=== PATIENT | male | born 1945 | race Caucasian/White ===

== ENCOUNTER → 2016-09-10 | Outpatient (CLI) | payer OTHER, BC ==
[2016-09-10 18:27] LABS: BASOPHILS # (AUTO) 0.06 10*3/UL; BASOPHILS % (AUTO) 0.7 % (0-1); EOSINOPHILS # (AUTO) 0.27 10*3/UL; EOSINOPHILS % (AUTO) 3.2 % (0-8); HEMATOCRIT 44.6 % (42.0-52.0); HEMOGLOBIN 15.3 g/dL (14.0-18.0); LYMPHOCYTES # (AUTO) 2.68 10*3/uL; MEAN CORPUSCULAR HEMOGLOBIN 31.1 PG (27-31); MEAN CORPUSCULAR HGB CONC 34.3 g/dL (33-37); MEAN CORPUSCULAR VOLUME 90.7 FL (80-90); MEAN PLATELET VOLUME 9.7 FL (7.4-12.2); MONOCYTES # (AUTO) 0.93 10*3/UL (0.3-0.8); MONOCYTES % (AUTO) 11.1 % (5-15); NEUTROPHILS # (AUTO) 4.41 10*3/UL; NEUTROPHILS % (AUTO) 52.8 % (50-80); RED BLOOD COUNT 4.92 10^6/uL (4.70-6.10)
[2016-09-10 18:30] LABS: PLATELET MORPHOLOGY COMMENT NORMAL MORPHOLOGY (NORM); RBC MORPHOLOGY COMMENT NORMAL MORPHOLOGY (NORM); WBC MORPHOLOGY COMMENT NORMAL MORPHOLOGY (NORM)
[2016-09-10 18:37] LABS: BLOOD UREA NITROGEN 21 mg/dL (7-22); CALCIUM 9.5 mg/dL (8.7-10.7); EST GLOMERULAR FILTRATION > 60 (>60 ml/min/1.73m(2)); SERUM ALBUMIN 4.3 g/dL (3.5-4.8)
[2016-09-10 18:38] LABS: CHOL/HDL RATIO 3.87 RATIO (0-4.0); LDL CHOLESTEROL,CALCULATED 105.4 mg/dL
[2016-09-10 18:39] LABS: BILIRUBIN,URINE NEGATIVE (NEG); COLOR,URINE YELLOW; GLUCOSE, URINE (UA) NEGATIVE (NEG); NITRATE,URINE NEGATIVE (NEG); OCCULT BLOOD,URINE NEGATIVE (NEG); PROTEIN,URINE TRACE mg/dl (NEG)
[2016-09-10 19:04] LABS: CLARITY,URINE CLEAR (CLEAR); URINE SAMPLE TYPE VOID; WBC,URINE 0-1
== END ==
LOC: MOB LAB 16:31
PROVIDERS: ATTEND Internal Medicine
DX: I10 Essential (primary) hypertension (principal); E66.9 Obesity, unspecified; Z68.33 Body mass index [BMI] 33.0-33.9, adult; R39.198 Other difficulties with micturition; G47.33 Obstructive sleep apnea (adult) (pediatric); K21.9 Gastro-esophageal reflux disease without esophagitis; Z12.5 Encounter for screening for malignant neoplasm of prostate
CPT/HCPCS: 36415; 80053; 80061; 81001; 84443; 85025; 99213; G0103; G0463

== ENCOUNTER 2017-04-12 23:11 | Observation (INO) ==
[2017-04-12] MEDS ORDERED: NORMAL SALINE 10 ML SYRINGE FLUSH IVP PRN (23:18)
[2017-04-12] MEDS ORDERED: ASPIRIN 81 MG (BABY) CHEWABLE TABLET PO ONE (23:18)
--- NOTE | 2017-04-12 23:20 | EKG ---
[address] [address] Measurements Intervals [place] Rate: 92 P: 17 DE: 210 QRS: 37 QRSD: 157 T: 29 QT: 398 QTc: 448 Interpretive Statements SINUS RHYTHM WITH FIRST DEGREE AV BLOCK INDETERMINATE AXIS RIGHT BUNDLE BRANCH BLOCK No previous ECG available for comparison Electronically Signed On 04-13-17 14:35:46 MST by Gregor Grace [email or web address]
--- NOTE | 2017-04-12 23:27 | PDOC ---
Chest Pain HPI - General Chief Complaint: Chest Pain Stated Complaint: CHEST PAIN Date Seen by Provider: 04/12/17 Time Seen by Provider: 23:10 Source: Patient Exam Limitations: POSITIVE: No limitations Treatment Prior to Arrival: REPORTS: None Nurse's Notes Reviewed & Considered: Yes - History of Present Illness Initial Comments: The patient is a 71-year-old male who presents to the emergency department with chest pain. He states that he had onset of pain in his left upper chest radiating to his left shoulder and left arm approximately 2 hours prior to presentation to the ER. He states that initially this pain was quite significant and he was rating it about a 7 out of 10. The pain has subsided somewhat and is now located primarily in his upper chest up into his neck. He rates this pain at only about a 2 out of 10 currently. The pain is somewhat worsened with taking a deep breath. The patient denies any associated diaphoresis, palpitation, nausea or increased shortness of breath. Patient does have a history of hypertension. He denies cardiac disease and had an exercise stress test about a year and a half ago that was unremarkable. He does have significant family history of coronary artery disease. He denies history of diabetes or hyperlipidemia. The patient does not use tobacco products. He has not had any new pain or swelling in his extremities. - Patient Home Medications Home Medications: Home Medications Multivit-Min/FA/Lycopen/Lutein [Sentry Senior Tablet] 1 ea PO DAILY tab Omeprazole Magnesium [Prilosec Otc] 1 tab PO PRN tab 03/06/15 Lisinopril 1 tab PO DAILY #30 tab 03/14/15 Amlodipine Besylate 1 tab PO DAILY tab 10/16/15 Acetaminophen [Tylenol] 325 mg PO PRN 04/12/17 Aspirin 81 mg PO DAILY 04/12/17 - Patient Allergies Allergies/Adverse Reactions: Allergies 3 Allergy/AdvReac Type Severity Reaction Status Date / Time ibuprofen Allergy Intermediate RASH Verified 04/13/17 09:04 Penicillins Allergy reddness, Verified 04/13/17 01:09 Past Medical History - hedurga FOWLER History: Denies History Cardiovascular History: Denies History Respiratory History: Denies History Gastrointestinal History: Denies History Genitourinary History: Denies History Endocrine History: Denies History Musculoskeletal History: Other (please comment) Additional Musculoskeletal History: Seperated shoulders. Neurological History: Denies History Blood Disorders: Denies History Psychiatric History: Denies History Male Reproductive History: Denies History Cancer History: Denies History In Past Year Been Physically Harmed or Verbally Threatened: No History of MDRO: No Tobacco Use: Never Smoker In the Past 12 Months, Have Used or Abuse Any Substance: None Previous Surgical History: No Significant Family History: Cancer Past Medical History Reviewed: Reviewed - No Changes ROS - Limitations ROS Limitations: No Limitations Constitution: DENIES: Chills, Fever Cardiovascular: REPORTS: Chest Pain. DENIES: Heart Racing, Heart Palpitations Respiratory: REPORTS: Hurts To Breathe. DENIES: Cough Non Productive, Cough Productive, Shortness Of Breath Neurological: DENIES: Headache, Numbness, Weakness Gastrointestinal: DENIES: Abdominal Pain, Nausea, Vomitting, Diarrhea Musculoskeletal: REPORTS: Denies MS Symptoms Eyes: REPORTS: Denies Symptoms ENT: REPORTS: Denies Symptoms Skin: DENIES: Rash Chest Pain PE - General Appearance General Appearance: REPORTS: Alert, Cooperative, No Acute Distress - HEENT HEENT: POSITIVE: Head Inspection Nml, Eyes Inspection Nml, Ears Inspection Nml, Nose Inspection Nml, Pharynx Inspect. Nml - Neck Neck: REPORTS: Normal Inspection. 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 Lab Results Reviewed by Me: Yes CBC and BMP: 04/12/17 23:18 04/12/17 23:18 EKG Interpretation:: POSITIVE: Normal Sinus Rhythm, Normal Rate, Normal ST/T, Other (The patient has a right bundle branch block with no obvious ST segment changes. No previous EKGs are available for comparison except for the strips from the stress test last year and he did have the right bundle branch block then.) - Patient's Progress MDM / ED Course: The patient was given aspirin per chest pain protocol shortly after arrival. His EKG showed a right bundle branch block with no obvious ST segment changes with no old EKGs available for comparison. His pain was quite minimal on arrival and subsequently resolved completely without any further treatment. His initial blood work is all unremarkable except for an elevated white blood cell count. His troponin d-dimer are normal. He denies any recent infectious symptoms. Decision was made to admit the patient for further cardiac monitoring and evaluation. The patient was in agreement with this plan. Dr. Fletcher has agreed to admit the patient. - Consult Counseled: POSITIVE: Patient, Family, RE: Lab Results, RE: Radiology Results, RE : DX Patient Care Time - Estimated PCT Patient Care Time (In Minutes): 30 Vital Signs - Recent Vital Signs Vital Signs: Vital Signs (Last 8 hours) Temp Pulse Pulse Resp BP Pulse Ox 04/13/17 08:28 97.1 F 83 20 116/66 96 04/13/17 06:50 82 04/13/17 04:52 96.9 F 77 20 129/70 94 04/13/17 03:00 104 H - VS Reviewed Vital Signs Reviewed: Yes Discharge Clinical Impression: Chest pain Discharge Disposition: Admit to Observation Condition: Fair
[2017-04-12 23:32] LABS: Hematocrit [HCT] 48.8 % (42.0-52.0); Hemoglobin [HGB] 16.6 g/dL (14.0-18.0); RED BLOOD COUNT 5.07 10^6/uL (4.70-6.10)
[2017-04-12 23:33] LABS: BAND NEUTROPHILS % 3 % (0-10); BASOPHILS % (MANUAL) 0 % (0-1); BLOOD UREA NITROGEN 22 mg/dL (7-22); EOSINOPHILS % (MANUAL) 0 % (0-8); MAGNESIUM 1.5 mg/dL (1.6-2.4); MEAN CORPUSCULAR HEMOGLOBIN 32.8 PG (27-31); MEAN CORPUSCULAR VOLUME 96 FL (80-90); MEAN PLATELET VOLUME 6.8 FL (7.4-12.2); MONOCYTES % (MANUAL) 6 % (0-12); NEUTROPHILS % (MANUAL) 73 % (50-80); PLATELET MORPHOLOGY COMMENT NORMAL MORPHOLOGY (NORM); RBC MORPHOLOGY COMMENT NORMAL MORPHOLOGY (NORM); SERUM ALBUMIN 4.5 g/dL (3.5-4.8); WBC MORPHOLOGY COMMENT SEE COMMENTS (NORM)
[2017-04-13] MEDS ORDERED: NITROGLYCERIN 0.4 MG SL TAB (BOTTLE OF 3) SL PRN (00:22)
[2017-04-13] MEDS ORDERED: NORMAL SALINE 10 ML SYRINGE FLUSH IVP PRN (00:22)
[2017-04-13] MEDS ORDERED: ONDANSETRON 4 MG/2 ML VIAL IVP PRN (00:22)
[2017-04-13] MEDS ORDERED: LIDOCAINE W/ SODIUM BICARB 0.5 ML SYR SUBD PRN (00:22)
[2017-04-13] MEDS ORDERED: CALCIUM CARBONATE 500 MG (TUMS) CHEWABLE TABLET PO PRN (00:22)
[2017-04-13] MEDS ORDERED: ACETAMINOPHEN 325 MG TABLET PO PRN (00:30)
[2017-04-13 05:54] LABS: CHOL/HDL RATIO 3.7 RATIO (0-4.0)
--- NOTE | 2017-04-13 07:36 | EKG ---
[address] [address] Measurements Intervals [place] Rate: 80 P: 53 WV: 190 QRS: 40 QRSD: 158 T: 52 QT: 410 QTc: 446 Interpretive Statements SINUS RHYTHM INDETERMINATE AXIS RIGHT BUNDLE BRANCH BLOCK ST ELEVATION, CONSIDER INFERIOR INJUR Compared to ECG 04/12/2017 23:16:40 ST (T wave) deviation now present First degree AV block no longer present Electronically Signed On 04-13-17 14:33:14 [facility] by Gregor Grace [id number]
[2017-04-13] MEDS ORDERED: Magnesium Sulfate 2gm (Premix) 2 GM/50 ML BAG IV ONE (08:40)
[2017-04-13] MEDS ORDERED: OMEPRAZOLE MAGNESIUM PO SCH (08:45)
--- NOTE | 2017-04-13 08:46 | EKG ---
[address] [address] Measurements Intervals [place] Rate: 81 P: 42 [place]: 188 QRS: 45 QRSD: 153 T: 59 QT: 411 QTc: 448 Interpretive Statements SINUS RHYTHM RIGHT BUNDLE BRANCH BLOCK Compared to ECG 04/13/2017 07:35:26 ST (T wave) deviation still presen Electronically Signed On 04-13-17 14:29:19 MST by Gregor Grace [id number]
--- NOTE | 2017-04-13 09:07 | DI ---
INDICATION: Chest pain COMPARISON: None. FINDINGS: Single frontal view of the chest is provided. There is mild cardiomegaly with normal pulmonary vascularity. Silhouetting of the left hemidiaphragm may be related to prominent epicardial fat pad or small pleural effusion. There is no airspace consolidation or pneumothorax. There are no acute osseous findings. IMPRESSION: 1. Silhouetting of the left hemidiaphragm, prominent epicardial fat pad versus small pleural effusion. 2. Mild cardiomegaly.
[2017-04-13] MEDS: ASPIRIN 81 MG (BABY) CHEWABLE TABLET PO SCH (09:15)
[2017-04-13 09:18] LABS: Hematocrit [HCT] 45.7 % (42.0-52.0); Hemoglobin [HGB] 15.7 g/dL (14.0-18.0); MEAN CORPUSCULAR HGB CONC 34.3 g/dL (33-37); MEAN CORPUSCULAR VOLUME 96 FL (80-90); NEUTROPHILS % (AUTO) 77.3 % (50-80); RED BLOOD COUNT 4.75 10^6/uL (4.70-6.10)
[2017-04-13 09:19] LABS: BASOPHILS % (AUTO) 0.8 % (0-1); EOSINOPHILS % (AUTO) 1.3 % (0-8); MONOCYTES % (AUTO) 10.9 % (5-15)
[2017-04-13 09:20] LABS: BASOPHILS # (AUTO) 0.12 10*3/UL; EOSINOPHILS # (AUTO) 0.19 10*3/UL; LYMPHOCYTES # (AUTO) 1.53 10*3/uL; MONOCYTES # (AUTO) 1.56 10*3/UL (0.3-0.8); NEUTROPHILS # (AUTO) 11.56 10*3/UL; PLATELET MORPHOLOGY COMMENT NORMAL MORPHOLOGY (NORM); RBC MORPHOLOGY COMMENT NORMAL MORPHOLOGY (NORM); WBC MORPHOLOGY COMMENT NORMAL MORPHOLOGY (NORM)
--- NOTE | 2017-04-13 09:22 | PDOC ---
HPI - History of Present Illness Date and Time of Service: 04/13/2017, 920 Chief Complaint: Chest and shoulder pain History of Present Illness: This very pleasant 71-year-old male who has underlying hypertension who drove in from [place], [place] last night when he abruptly developed chest pain. He described it as left shoulder pain with radiation into his left arm and manubrial pain that has been fairly constant and persistent and has not responded to nitroglycerin. There was no activity component. The patient has a very remote history of smoking, quit over 50 years ago, does not have early cardiac disease in the family, no diabetes, no cholesterol problems. He states that he's also feeling some discomfort in his throat and apparently has had some ill contacts lately. In the emergency room, he was found to have a white blood cell count of 18,000 but he had no evidence of pneumonia on his chest x- ray. His EKG shows a right bundle branch block pattern. His initial labs were negative for acute myocardial infarction. The patient has not been short of breath, has not had cough, fever, or chills. He states that his pain seems to be a little worse with a deep breath. There is no positional component to the pain. He is a very difficult time describing the quality of the pain. He has a negative exercise treadmill stress test a couple of years ago. Past Medical History Medical History: 1. Hypertension. 2. GERD. 3. Obstructive sleep apnea on CPAP therapy Surgical History: Partial left thumb amputation. Pertinent Family History: Father had a heart attack and a stroke. He was in his 80s, mother had some heart issues she was in her 60s Past Social History: Smoked over 50 years ago. Does not drink alcohol. 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 Quit chewing tobacco 4 years ago. Tobacco Use: Former Smoker Do you dip or chew tobacco: No In the Past 12 Months, Have Used or Abuse Any of the Following Substance: None Alcohol Use: None Medication / Allergies Home Medications: Home Medications Medication Instructions Recorded Confirmed Type Multivit-Min/FA/Lycopen/Lutein 1 ea PO DAILY tab 03/06/15 04/12/17 History [Sentry Senior Tablet] Omeprazole Magnesium [Prilosec Otc] 1 tab PO PRN tab 03/06/15 04/12/17 History Lisinopril 1 tab PO DAILY #30 tab 03/14/15 04/12/17 History Amlodipine Besylate 1 tab PO DAILY tab 10/16/15 04/12/17 History Acetaminophen [Tylenol] 325 mg PO PRN 04/12/17 04/12/17 History Aspirin 81 mg PO DAILY 04/12/17 04/12/17 History Allergies/Adverse Reactions: Allergies 3 Allergy/AdvReac Type Severity Reaction Status Date / Time ibuprofen Allergy Intermediate RASH Verified 04/13/17 09:04 Penicillins Allergy reddness, Verified 04/13/17 01:09 Review of Systems - Review of Systems All Systems: Reviewed & No Additional Complaints Except as Stated (I did a 12 point review systems and was negative other than that discussed in history present illness and that noted below.) - Respiratory Respiratory: REPORTS: Negative System Review - Cardiovascular Cardiovascular: REPORTS: See HPI - Genitourinary Genitourinary: REPORTS: Decreased Stream - Musculoskeletal Musculoskeletal: REPORTS: Joint Pain - Shoulders - Neurological Neurologic: REPORTS: Negative System Review Exam - Vitals Vital Signs: Vital Signs Temperature 97.1 F Temperature Source Oral Pulse Rate [Pulse Oximeter] 83 Pulse Rate 82 Respiratory Rate 20 Blood Pressure [Right Arm] 116/66 Pulse Ox 96 Oxygen Flow Rate 2 Oxygen Delivery Method Nasal Cannula Height 6 ft 3 in Weight 245 lb 9.6 oz - General General Appearance: No Acute Distress, Cooperative - Head Head Exam: Normal Inspection, Normocephalic, Atraumatic - Eye Eye Exam: POSITIVE: No Scleral Icterus - ENT ENT Exam: POSITIVE: Mucous Membranes Moist Additonal ENT Exam Details: On examination of oral cavity, it appears normal. No anterior cervical lymphadenopathy. - Neck Neck Exam: Normal Inspection, No Tenderness, No Lymphadenopathy, No Thyromegaly - Respiratory Respiratory Exam: POSITIVE: Clear to Auscultation - Bilaterally, Breathing Non Labored, Normal to Percussion and Palpation - Cardiovascular Cardiovascular Exam: POSITIVE: RRR, No Murmur, No Clicks, No Gallops, No Rubs, No JVD - GI/Abdominal GI/Abdominal Exam: POSITIVE: Normal Bowel Sounds, Non Tender, Non Distended, Soft - Rectal Rectal Exam: POSITIVE: Deferred - External Exam: POSITIVE: Deferred Exam: POSITIVE: Deferred - Extremities Extremities Exam: POSITIVE: No Clubbing Present, No Edema Present, No Cyanosis Present - Back Back Exam: POSITIVE: Normal Inspection, No CVA Tenderness - Neurological Neurological Exam: POSITIVE: Alert, Oriented x 3, No Facial Droop, Speech Intact / Clear, Moves All Extremities Equally - Psychiatric Psychiatric Exam: POSITIVE: Normal Affect, Normal Mood - Central Line Examination Central Line Present on Admission: No Results - Labs CBC and BMP: 04/12/17 23:18 04/12/17 23:18 Additional Lab Results: Laboratory Results 04/12/17 04/12/17 04/12/17 Range/Units 23:18 23:18 23:18 WBC 18.6 H (4.8-10.8) 10^3/uL RBC 5.07 (4.70-6.10) 10^6/uL Hgb 16.6 (14.0-18.0) g/dL Hct 48.8 (42.0-52.0) % MCV 96 H (80-90) FL MCH 32.8 H (27-31) PG MCHC 34.0 (33-37) g/dL RDW Coeff of Bakari 11.9 (11.5-14.5) % Plt Count 284 (140-350) 10*3/uL MPV 6.8 L (7.4-12.2) FL Neut % (Auto) (50-80) % Lymph % (Auto) (10-50) % Garrard % (Auto) (5-15) % Eos % (Auto) (0-8) % Baso % (Auto) (0-1) % Neut # (Auto) 10*3/UL Lymph # (Auto) 10*3/uL [place]ard # (Auto) (0.3-0.8) 10*3/UL Eos # (Auto) 10*3/UL Baso # (Auto) 10*3/UL Neutrophils % (Manual) 73 (50-80) % Band Neutrophils % 3 (0-10) % Lymphocytes % (Manual) 18 (10-50) % Monocytes % (Manual) 6 (0-12) % Eosinophils % (Manual) 0 (0-8) % Basophils % (Manual) 0 (0-1) % Metamyelocytes % Not Reportable Myelocytes % Not Reportable Promyelocytes % Not Reportable Blast Cells Not Reportable WBC Morphology Comment See comments (NORM) Plt Morphology Comment Normal morphology (NORM) RBC Morph Comment Normal morphology (NORM) D-Dimer 0.34 (0.00-0.59) mg/L Sodium 143 (135-145) meq/L Potassium 4.0 (3.8-5.2) meq/L Chloride 103 (98-112) meq/L Carbon Dioxide 25 (23-33) meq/L Anion Gap 15 (5-20) BUN 22 (7-22) mg/dL Creatinine 1.0 (0.70-1.50) mg/dL Estimated GFR > 60 (>60 ml/min/1.73m(2)) BUN/Creatinine Ratio 22.00 H (6-20) Glucose 96 (78-110) mg/dL Calculated Osmolality 298.0 H (267-292) mOsm/kg Calcium 9.2 (8.7-10.7) mg/dL Magnesium 1.5 L (1.6-2.4) mg/dL Total Bilirubin 0.7 (0.3-1.2) mg/dL AST 32 (21-57) IU/L ALT 38 (21-72) IU/L Alkaline Phosphatase 92 (38-126) IU/L Lactate Dehydrogenase (313-618) IU/L CK-MB (CK-2) (0.00-5.00) NG/ML Troponin I (< 0.040) ng/mL Total Protein 8.2 H (6.1-8.0) g/dL Albumin 4.5 (3.5-4.8) g/dL Globulin 3.7 (2.50-4.10) g/dL Albumin/Globulin Ratio 1.20 L (1.3-2.0) mg/g Triglycerides (44-200) mg/dL Cholesterol (120-200) mg/dL LDL Cholesterol, Calc mg/dL VLDL Cholesterol (0-40) mg/dL HDL Cholesterol (40-150) mg/dL Cholesterol/HDL Ratio (0-4.0) RATIO TSH (0.2700-4.2000) uIU/mL Free T4 (0.93-1.71) ng/dL 04/12/17 04/13/17 04/13/17 Range/Units 23:18 05:40 05:40 WBC (4.8-10.8) 10^3/uL RBC (4.70-6.10) 10^6/uL Hgb (14.0-18.0) g/dL Hct (42.0-52.0) % MCV (80-90) FL MCH (27-31) PG MCHC (33-37) g/dL RDW Coeff of Bakari (11.5-14.5) % Plt Count (140-350) 10*3/uL MPV (7.4-12.2) FL Neut % (Auto) (50-80) % Lymph % (Auto) (10-50) % Garrard % (Auto) (5-15) % Eos % (Auto) (0-8) % Baso % (Auto) (0-1) % Neut # (Auto) 10*3/UL Lymph # (Auto) 10*3/uL [place] # (Auto) (0.3-0.8) 10*3/UL Eos # (Auto) 10*3/UL Baso # (Auto) 10*3/UL Neutrophils % (Manual) (50-80) % Band Neutrophils % (0-10) % Lymphocytes % (Manual) (10-50) % Monocytes % (Manual) (0-12) % Eosinophils % (Manual) (0-8) % Basophils % (Manual) (0-1) % Metamyelocytes % Myelocytes % Promyelocytes % Blast Cells WBC Morphology Comment (NORM) Plt Morphology Comment (NORM) RBC Morph Comment (NORM) D-Dimer (0.00-0.59) mg/L Sodium (135-145) meq/L Potassium (3.8-5.2) meq/L Chloride (98-112) meq/L Carbon Dioxide (23-33) meq/L Anion Gap (5-20) BUN (7-22) mg/dL Creatinine (0.70-1.50) mg/dL Estimated GFR (>60 ml/min/1.73m(2)) BUN/Creatinine Ratio (6-20) Glucose (78-110) mg/dL Calculated Osmolality (267-292) mOsm/kg Calcium (8.7-10.7) mg/dL Magnesium (1.6-2.4) mg/dL Total Bilirubin (0.3-1.2) mg/dL AST (21-57) IU/L ALT (21-72) IU/L Alkaline Phosphatase (38-126) IU/L Lactate Dehydrogenase (313-618) IU/L CK-MB (CK-2) 1.22 (0.00-5.00) NG/ML Troponin I < 0.012 < 0.012 (< 0.040) ng/mL Total Protein (6.1-8.0) g/dL Albumin (3.5-4.8) g/dL Globulin (2.50-4.10) g/dL Albumin/Globulin Ratio (1.3-2.0) mg/g Triglycerides 74 (44-200) mg/dL Cholesterol 174 (120-200) mg/dL LDL Cholesterol, Calc 112.200 mg/dL VLDL Cholesterol 14 (0-40) mg/dL HDL Cholesterol 47 (40-150) mg/dL Cholesterol/HDL Ratio 3.70 (0-4.0) RATIO TSH (0.2700-4.2000) uIU/mL Free T4 (0.93-1.71) ng/dL 04/13/17 04/13/17 04/13/17 Range/Units 05:40 05:40 05:40 WBC 15.0 H (4.8-10.8) 10^3/uL RBC 4.75 (4.70-6.10) 10^6/uL Hgb 15.7 (14.0-18.0) g/dL Hct 45.7 (42.0-52.0) % MCV 96 H (80-90) FL MCH 33.0 H (27-31) PG MCHC 34.3 (33-37) g/dL RDW Coeff of Bakari 11.8 (11.5-14.5) % Plt Count 250 (140-350) 10*3/uL MPV 7.0 L (7.4-12.2) FL Neut % (Auto) 77.3 (50-80) % Lymph % (Auto) 10.2 (10-50) % Garrard % (Auto) 10.9 (5-15) % Eos % (Auto) 1.3 (0-8) % Baso % (Auto) 0.8 (0-1) % Neut # (Auto) 11.56 10*3/UL Lymph # (Auto) 1.53 10*3/uL G[place]ard # (Auto) 1.56 H (0.3-0.8) 10*3/UL Eos # (Auto) 0.19 10*3/UL Baso # (Auto) 0.12 10*3/UL Neutrophils % (Manual) (50-80) % Band Neutrophils % (0-10) % Lymphocytes % (Manual) (10-50) % Monocytes % (Manual) (0-12) % Eosinophils % (Manual) (0-8) % Basophils % (Manual) (0-1) % Metamyelocytes % Myelocytes % Promyelocytes % Blast Cells WBC Morphology Comment Normal morphology (NORM) Plt Morphology Comment Normal morphology (NORM) RBC Morph Comment Normal morphology (NORM) D-Dimer (0.00-0.59) mg/L Sodium (135-145) meq/L Potassium (3.8-5.2) meq/L Chloride (98-112) meq/L Carbon Dioxide (23-33) meq/L Anion Gap (5-20) BUN (7-22) mg/dL Creatinine (0.70-1.50) mg/dL Estimated GFR (>60 ml/min/1.73m(2)) BUN/Creatinine Ratio (6-20) Glucose (78-110) mg/dL Calculated Osmolality (267-292) mOsm/kg Calcium (8.7-10.7) mg/dL Magnesium (1.6-2.4) mg/dL Total Bilirubin (0.3-1.2) mg/dL AST (21-57) IU/L ALT (21-72) IU/L Alkaline Phosphatase (38-126) IU/L Lactate Dehydrogenase 827 H (313-618) IU/L CK-MB (CK-2) (0.00-5.00) NG/ML Troponin I (< 0.040) ng/mL Total Protein (6.1-8.0) g/dL Albumin (3.5-4.8) g/dL Globulin (2.50-4.10) g/dL Albumin/Globulin Ratio (1.3-2.0) mg/g Triglycerides (44-200) mg/dL Cholesterol (120-200) mg/dL LDL Cholesterol, Calc mg/dL VLDL Cholesterol (0-40) mg/dL HDL Cholesterol (40-150) mg/dL Cholesterol/HDL Ratio (0-4.0) RATIO TSH 1.60 (0.2700-4.2000) uIU/mL Free T4 0.96 (0.93-1.71) ng/dL 11/19/17 Range/Units 05:40 WBC (4.8-10.8) 10^3/uL RBC (4.70-6.10) 10^6/uL Hgb (14.0-18.0) g/dL Hct (42.0-52.0) % MCV (80-90) FL MCH (27-31) PG MCHC (33-37) g/dL RDW Coeff of Bakari (11.5-14.5) % Plt Count (140-350) 10*3/uL MPV (7.4-12.2) FL Neut % (Auto) (50-80) % Lymph % (Auto) (10-50) % Garrard % (Auto) (5-15) % Eos % (Auto) (0-8) % Baso % (Auto) (0-1) % Neut # (Auto) 10*3/UL Lymph # (Auto) 10*3/uL Garrard # (Auto) (0.3-0.8) 10*3/UL Eos # (Auto) 10*3/UL Baso # (Auto) 10*3/UL Neutrophils % (Manual) (50-80) % Band Neutrophils % (0-10) % Lymphocytes % (Manual) (10-50) % Monocytes % (Manual) (0-12) % Eosinophils % (Manual) (0-8) % Basophils % (Manual) (0-1) % Metamyelocytes % Myelocytes % Promyelocytes % Blast Cells WBC Morphology Comment (NORM) Plt Morphology Comment (NORM) RBC Morph Comment (NORM) D-Dimer (0.00-0.59) mg/L Sodium (135-145) meq/L Potassium (3.8-5.2) meq/L Chloride (98-112) meq/L Carbon Dioxide (23-33) meq/L Anion Gap (5-20) BUN (7-22) mg/dL Creatinine (0.70-1.50) mg/dL Estimated GFR (>60 ml/min/1.73m(2)) BUN/Creatinine Ratio (6-20) Glucose (78-110) mg/dL Calculated Osmolality (267-292) mOsm/kg Calcium (8.7-10.7) mg/dL Magnesium (1.6-2.4) mg/dL Total Bilirubin (0.3-1.2) mg/dL AST (21-57) IU/L ALT (21-72) IU/L Alkaline Phosphatase (38-126) IU/L Lactate Dehydrogenase (313-618) IU/L CK-MB (CK-2) 1.09 (0.00-5.00) NG/ML Troponin I (< 0.040) ng/mL Total Protein (6.1-8.0) g/dL Albumin (3.5-4.8) g/dL Globulin (2.50-4.10) g/dL Albumin/Globulin Ratio (1.3-2.0) mg/g Triglycerides (44-200) mg/dL Cholesterol (120-200) mg/dL LDL Cholesterol, Calc mg/dL VLDL Cholesterol (0-40) mg/dL HDL Cholesterol (40-150) mg/dL Cholesterol/HDL Ratio (0-4.0) RATIO TSH (0.2700-4.2000) uIU/mL Free T4 (0.93-1.71) ng/dL - EKG Data -: EKG Interpreted by Me Rate: Normal EKG Shows Normal: Sinus Rhythm - EKG Data When Compared to Previous EKG(s) There Are: No Significant Change EKG Interpretation: Other (The patient has 3 EKGs, I think they all look fairly similar, with a right bundle branch block with specific ST changes that I don't see significant changes from an EKG to the other.) - Imaging Status: Image Reviewed by Me (Chest x-ray is negative for pneumonia on my view.) Assessment and Plan - Patient Problems (1) Chest pain Current Visit: Yes Status: Acute Comment: The only consistent finding in history was that there is somewhat of a pleuritic component to this pain. It was not reproduced with palpation. It is isolated on the manubrium, seems to radiate to the shoulder and to the throat area. Code(s): R07.9 - Chest pain, unspecified Qualifiers: Chest pain type: chest pain on breathing Qualified Code(s): R07.1 - Chest pain on breathing; R07.81 - Pleurodynia (2) Hypertension Current Visit: Yes Status: Acute Code(s): I10 - Essential (primary) hypertension Qualifiers: Hypertension type: essential hypertension Qualified Code(s): I10 - Essential (primary) hypertension (3) GERD (gastroesophageal reflux disease) Current Visit: Yes Status: Acute Code(s): K21.9 - Gastro-esophageal reflux disease without esophagitis Qualifiers: Esophagitis presence: esophagitis presence not specified Qualified Code(s) : K21.9 - Gastro-esophageal reflux disease without esophagitis (4) Obstructive sleep apnea Current Visit: Yes Status: Acute Code(s): G47.33 - Obstructive sleep apnea ( adult) (pediatric) - Assessment / Plan Additional Assessment/Plan Details: Plan: 1. Do serial enzymes and EKG if necessary 2. Aspirin 3. We'll have the patient do a stress test chemical 4. Proton pump inhibitor as the patient is normally on this. 5. Nitroglycerin when necessary for chest pain 6. Morphine if necessary via IV 7. Oxygen if necessary 8. If testing indicates further need for evaluation, discussion with cardiology. If testing is negative for myocardial infarction and no further indication for coronary artery disease, consider outpatient workup for GI source , pulmonary source, or other 9. Given the right bundle branch block, I think that we should go ahead and proceed with a chemical stress test. He has a history of a negative exercise stress test done here 2 years ago. 10. As we're fairly early in the process here of this chest pain presentation, I will go ahead and check CK-MB and also LDH and see if these are elevated, but thus far troponins do not seem to indicate that there's been an acute myocardial event. Plan above discussed with patient and he agreed.
[2017-04-13] MEDS: LISINOPRIL 20 MG TABLET PO SCH (09:24)
[2017-04-13] MEDS: Multivitamin Tab 1 TAB PO SCH (10:03)
[2017-04-14] MEDS ORDERED: OMEPRAZOLE MAGNESIUM PO SCH (09:00)
[2017-04-14] MEDS ORDERED: ASPIRIN 81 MG (BABY) CHEWABLE TABLET PO SCH (09:00)
[2017-04-14] MEDS: LISINOPRIL 20 MG TABLET PO SCH (10:00)
[2017-04-14] MEDS: Multivitamin Tab 1 TAB PO SCH (10:00)
[2017-04-14] MEDS: ASPIRIN 81 MG (BABY) CHEWABLE TABLET PO SCH (10:00)
--- NOTE | 2017-04-14 10:16 | STRESSTEST ---
[facility] - [place], [place] Interpretive Statements This is a 71 YO with upper sternal chest pain, hx of HTN, who ruled out for DE. Has a right BBB. Oralia scan stress test ordered and done with resting images yesterday and stress images today. Resting EKG was NSR with right BBB with non specific ST changes. No symptoms of chest pain on study. Plan: compile images for radiologist and await radiology interpretation. [email or web address]
[2017-04-14] MEDS ORDERED: OMEPRAZOLE 20 MG CAPSULE PO SCH (11:30)
[2017-04-14 16:11] VITALS: BP 146/72; RESP 18; TEMP 97.4; O2SAT 97
--- NOTE | 2017-04-14 17:22 | DI ---
2 DAY LEXISCAN STRESS & REST MYOCARDIAL PERFUSION SCANS, 04/13/2017 7:00 AM : Clinical History: Chest pain. Previous Exam: None at this facility. Monitoring Physician: Dr. Rafael Brewster. Dose: Stress dose: 35 mCi on 04/14/2017. Rest dose: 37 mCi on 04/13/2017. Quantitative Analysis: Gorb program with low dose limited CT chest scan attenuation correctio n. Exam Quality: Excellent. Rejected Beats: Stress = 0%; Rest = 0%. HR: Stress = 73-80 b/m; Rest = 83-8 5 b/m. Left ventricular chamber sizes are normal at stress and rest. Transient ischemic dilatation ratio is 1.13 (normal David TID <= 1.22; normal Lexiscan TID <= 1.33). Stress LVEF: 72%; rest LVEF: 81%. Stres s and rest non-attenuated and attenuated corrected scans show normal myocardial perfusion, wall motio n, and thickening. Limited CT scans of the heart show no coronary artery calcifications. There are no lung nodules or enlarged nodes. Scans through the right middle lobe show a 6 mm noncalcified nodule. See below for followup. Readin. Normal stress and rest left ventricular chamber size. Transient ischemic dilatation ratio is norm al at 1.13. 2. Normal stress and rest LVEF values of 72% and 81%, respectively. 3. Normal stress and rest myocardial perfusion, wall motion, and thickening. 4. There is a 6 mm noncalcified nodule in the right middle lobe. If this patient is considered to be either low risk or high-risk, then a followup CT chest scan is recommended at 6 months. 5. The low dose stress and rest CT scans of the chest through the region of the heart show no coron sandra calcifications. There is no mediastinal or hilar adenopathy.
--- NOTE | 2017-04-14 17:37 | DCSUMMARY ---
Hospitalization Summary Admit Date: 04/13/17 Discharge Date: 04/14/17 Primary Diagnosis:: atypical chest pain, probably musculoskeletal Hospital Course: This very pleasant 71-year-old male that presented with left shoulder pain radiating down his arm and into the manubrium. He was admitted for evaluation, ruled out for myocardial infarction but was found to have a right bundle branch block. He had nonspecific EKG changes associated with a right bundle branch block. Enzymes were all negative. We did a Lexiscan stress test and it was negative for coronary artery disease. Incidentally a lung nodule was found. It was 6 mm and the patient is fairly low risk as he has not smoked in over 50 years. We will repeat a CT scan in 2 months. The patient's pain resolved and never did come back during the hospital stay. Today, no completes of chest pain, shortness breath, nausea or vomiting. Patient would like to go home. Assessment and Plan: 1. As per discharge assessments noted 2. Disposition: Patient is discharged home. 3. Condition on discharge, stable and improved. 4. Diet: regular diet 5. Activities: resume normal activities 6. Follow-Up: 1. See Dr. Underwood or Dr. Alatorre in the next week if possible, definitely after CT scan in 2 months 2. 7. Medications at the Time of Discharge: Home Medications Medication Instructions Recorded Confirmed Type Multivit-Min/FA/Lycopen/Lutein 1 ea PO DAILY tab 03/06/15 04/12/17 History [Sentry Senior Tablet] Omeprazole Magnesium [Prilosec Otc] 1 tab PO PRN tab 03/06/15 04/12/17 History Lisinopril 1 tab PO DAILY #30 tab 03/14/15 04/12/17 History Amlodipine Besylate 1 tab PO DAILY tab 10/16/15 04/12/17 History Acetaminophen [Tylenol] 325 mg PO PRN 04/12/17 04/12/17 History Aspirin 81 mg PO DAILY 04/12/17 04/12/17 History 8. Time, care, counseling and coordination of care for this discharge is greater than 30 minutes. Exam - Vitals Vital Signs: Vital Signs Temperature 97.4 F Temperature Source Temporal Artery Scan Pulse Rate [Pulse Oximeter] 89 Pulse Rate 67 Respiratory Rate 18 Blood Pressure [Right Arm] 146/72 Pulse Ox 97 Oxygen Flow Rate 2 Oxygen Delivery Method Room Air Height 6 ft 3 in Weight 245 lb 9.6 oz - General General Appearance: No Acute Distress, Cooperative - Eye Eye Exam: POSITIVE: No Scleral Icterus - ENT ENT Exam: POSITIVE: Mucous Membranes Moist - Respiratory Respiratory Exam: POSITIVE: Clear to Auscultation - Bilaterally, Breathing Non Labored - Cardiovascular Cardiovascular Exam: POSITIVE: RRR, No Murmur, No Clicks, No Gallops, No Rubs, No JVD - GI/Abdominal GI/Abdominal Exam: POSITIVE: Normal Bowel Sounds, Non Tender, Non Distended, Soft - Extremities Extremities Exam: POSITIVE: No Clubbing Present, No Edema Present, No Cyanosis Present - Neurological Neurological Exam: POSITIVE: Alert, Oriented x 3, Normal Gait, No Facial Droop, Speech Intact / Clear, Moves All Extremities Equally - Psychiatric Psychiatric Exam: POSITIVE: Normal Affect, Normal Mood Data Perinent Studies: Laboratory Results 04/12/17 04/12/17 04/12/17 Range/Units 23:18 23:18 23:18 WBC 18.6 H (4.8-10.8) 10^3/uL RBC 5.07 (4.70-6.10) 10^6/uL Hgb 16.6 (14.0-18.0) g/dL Hct 48.8 (42.0-52.0) % MCV 96 H (80-90) FL MCH 32.8 H (27-31) PG MCHC 34.0 (33-37) g/dL RDW Coeff of Bakari 11.9 (11.5-14.5) % Plt Count 284 (140-350) 10*3/uL MPV 6.8 L (7.4-12.2) FL Neut % (Auto) (50-80) % Lymph % (Auto) (10-50) % Meade % (Auto) (5-15) % Eos % (Auto) (0-8) % Baso % (Auto) (0-1) % Neut # (Auto) 10*3/UL Lymph # (Auto) 10*3/uL Meade # (Auto) (0.3-0.8) 10*3/UL Eos # (Auto) 10*3/UL Baso # (Auto) 10*3/UL Neutrophils % (Manual) 73 (50-80) % Band Neutrophils % 3 (0-10) % Lymphocytes % (Manual) 18 (10-50) % Monocytes % (Manual) 6 (0-12) % Eosinophils % (Manual) 0 (0-8) % Basophils % (Manual) 0 (0-1) % Metamyelocytes % Not Reportable Myelocytes % Not Reportable Promyelocytes % Not Reportable Blast Cells Not Reportable WBC Morphology Comment See comments (NORM) Plt Morphology Comment Normal morphology (NORM) RBC Morph Comment Normal morphology (NORM) D-Dimer 0.34 (0.00-0.59) mg/L Sodium 143 (135-145) meq/L Potassium 4.0 (3.8-5.2) meq/L Chloride 103 (98-112) meq/L Carbon Dioxide 25 (23-33) meq/L Anion Gap 15 (5-20) BUN 22 (7-22) mg/dL Creatinine 1.0 (0.70-1.50) mg/dL Estimated GFR > 60 (>60 ml/min/1.73m(2)) BUN/Creatinine Ratio 22.00 H (6-20) Glucose 96 (78-110) mg/dL Calculated Osmolality 298.0 H (267-292) mOsm/kg Calcium 9.2 (8.7-10.7) mg/dL Magnesium 1.5 L (1.6-2.4) mg/dL Total Bilirubin 0.7 (0.3-1.2) mg/dL AST 32 (21-57) IU/L ALT 38 (21-72) IU/L Alkaline Phosphatase 92 (38-126) IU/L Lactate Dehydrogenase (313-618) IU/L CK-MB (CK-2) (0.00-5.00) NG/ML Troponin I (< 0.040) ng/mL C-Reactive Protein (0.0-0.9) mg/dL Total Protein 8.2 H (6.1-8.0) g/dL Albumin 4.5 (3.5-4.8) g/dL Globulin 3.7 (2.50-4.10) g/dL Albumin/Globulin Ratio 1.20 L (1.3-2.0) mg/g Triglycerides (44-200) mg/dL Cholesterol (120-200) mg/dL LDL Cholesterol, Calc mg/dL VLDL Cholesterol (0-40) mg/dL HDL Cholesterol (40-150) mg/dL Cholesterol/HDL Ratio (0-4.0) RATIO TSH (0.2700-4.2000) uIU/mL Free T4 (0.93-1.71) ng/dL 04/12/17 04/13/17 04/13/17 Range/Units 23:18 05:40 05:40 WBC (4.8-10.8) 10^3/uL RBC (4.70-6.10) 10^6/uL Hgb (14.0-18.0) g/dL Hct (42.0-52.0) % MCV (80-90) FL MCH (27-31) PG MCHC (33-37) g/dL RDW Coeff of Bakari (11.5-14.5) % Plt Count (140-350) 10*3/uL MPV (7.4-12.2) FL Neut % (Auto) (50-80) % Lymph % (Auto) (10-50) % Meade % (Auto) (5-15) % Eos % (Auto) (0-8) % Baso % (Auto) (0-1) % Neut # (Auto) 10*3/UL Lymph # (Auto) 10*3/uL Meade # (Auto) (0.3-0.8) 10*3/UL Eos # (Auto) 10*3/UL Baso # (Auto) 10*3/UL Neutrophils % (Manual) (50-80) % Band Neutrophils % (0-10) % Lymphocytes % (Manual) (10-50) % Monocytes % (Manual) (0-12) % Eosinophils % (Manual) (0-8) % Basophils % (Manual) (0-1) % Metamyelocytes % Myelocytes % Promyelocytes % Blast Cells WBC Morphology Comment (NORM) Plt Morphology Comment (NORM) RBC Morph Comment (NORM) D-Dimer (0.00-0.59) mg/L Sodium (135-145) meq/L Potassium (3.8-5.2) meq/L Chloride (98-112) meq/L Carbon Dioxide (23-33) meq/L Anion Gap (5-20) BUN (7-22) mg/dL Creatinine (0.70-1.50) mg/dL Estimated GFR (>60 ml/min/1.73m(2)) BUN/Creatinine Ratio (6-20) Glucose (78-110) mg/dL Calculated Osmolality (267-292) mOsm/kg Calcium (8.7-10.7) mg/dL Magnesium (1.6-2.4) mg/dL Total Bilirubin (0.3-1.2) mg/dL AST (21-57) IU/L ALT (21-72) IU/L Alkaline Phosphatase (38-126) IU/L Lactate Dehydrogenase (313-618) IU/L CK-MB (CK-2) 1.22 (0.00-5.00) NG/ML Troponin I < 0.012 < 0.012 (< 0.040) ng/mL C-Reactive Protein (0.0-0.9) mg/dL Total Protein (6.1-8.0) g/dL Albumin (3.5-4.8) g/dL Globulin (2.50-4.10) g/dL Albumin/Globulin Ratio (1.3-2.0) mg/g Triglycerides 74 (44-200) mg/dL Cholesterol 174 (120-200) mg/dL LDL Cholesterol, Calc 112.200 mg/dL VLDL Cholesterol 14 (0-40) mg/dL HDL Cholesterol 47 (40-150) mg/dL Cholesterol/HDL Ratio 3.70 (0-4.0) RATIO TSH (0.2700-4.2000) uIU/mL Free T4 (0.93-1.71) ng/dL 04/13/17 04/13/17 04/13/17 Range/Units 05:40 05:40 05:40 WBC 15.0 H (4.8-10.8) 10^3/uL RBC 4.75 (4.70-6.10) 10^6/uL Hgb 15.7 (14.0-18.0) g/dL Hct 45.7 (42.0-52.0) % MCV 96 H (80-90) FL MCH 33.0 H (27-31) PG MCHC 34.3 (33-37) g/dL RDW Coeff of Bakari 11.8 (11.5-14.5) % Plt Count 250 (140-350) 10*3/uL MPV 7.0 L (7.4-12.2) FL Neut % (Auto) 77.3 (50-80) % Lymph % (Auto) 10.2 (10-50) % Meade % (Auto) 10.9 (5-15) % Eos % (Auto) 1.3 (0-8) % Baso % (Auto) 0.8 (0-1) % Neut # (Auto) 11.56 10*3/UL Lymph # (Auto) 1.53 10*3/uL Meade # (Auto) 1.56 H (0.3-0.8) 10*3/UL Eos # (Auto) 0.19 10*3/UL Baso # (Auto) 0.12 10*3/UL Neutrophils % (Manual) (50-80) % Band Neutrophils % (0-10) % Lymphocytes % (Manual) (10-50) % Monocytes % (Manual) (0-12) % Eosinophils % (Manual) (0-8) % Basophils % (Manual) (0-1) % Metamyelocytes % Myelocytes % Promyelocytes % Blast Cells WBC Morphology Comment Normal morphology (NORM) Plt Morphology Comment Normal morphology (NORM) RBC Morph Comment Normal morphology (NORM) D-Dimer (0.00-0.59) mg/L Sodium (135-145) meq/L Potassium (3.8-5.2) meq/L Chloride (98-112) meq/L Carbon Dioxide (23-33) meq/L Anion Gap (5-20) BUN (7-22) mg/dL Creatinine (0.70-1.50) mg/dL Estimated GFR (>60 ml/min/1.73m(2)) BUN/Creatinine Ratio (6-20) Glucose (78-110) mg/dL Calculated Osmolality (267-292) mOsm/kg Calcium (8.7-10.7) mg/dL Magnesium (1.6-2.4) mg/dL Total Bilirubin (0.3-1.2) mg/dL AST (21-57) IU/L ALT (21-72) IU/L Alkaline Phosphatase (38-126) IU/L Lactate Dehydrogenase 827 H (313-618) IU/L CK-MB (CK-2) (0.00-5.00) NG/ML Troponin I (< 0.040) ng/mL C-Reactive Protein (0.0-0.9) mg/dL Total Protein (6.1-8.0) g/dL Albumin (3.5-4.8) g/dL Globulin (2.50-4.10) g/dL Albumin/Globulin Ratio (1.3-2.0) mg/g Triglycerides (44-200) mg/dL Cholesterol (120-200) mg/dL LDL Cholesterol, Calc mg/dL VLDL Cholesterol (0-40) mg/dL HDL Cholesterol (40-150) mg/dL Cholesterol/HDL Ratio (0-4.0) RATIO TSH 1.60 (0.2700-4.2000) uIU/mL Free T4 0.96 (0.93-1.71) ng/dL 04/13/17 04/13/17 04/13/17 Range/Units 05:40 05:40 11:00 WBC (4.8-10.8) 10^3/uL RBC (4.70-6.10) 10^6/uL Hgb (14.0-18.0) g/dL Hct (42.0-52.0) % MCV (80-90) FL MCH (27-31) PG MCHC (33-37) g/dL RDW Coeff of Bakari (11.5-14.5) % Plt Count (140-350) 10*3/uL MPV (7.4-12.2) FL Neut % (Auto) (50-80) % Lymph % (Auto) (10-50) % Meade % (Auto) (5-15) % Eos % (Auto) (0-8) % Baso % (Auto) (0-1) % Neut # (Auto) 10*3/UL Lymph # (Auto) 10*3/uL Meade # (Auto) (0.3-0.8) 10*3/UL Eos # (Auto) 10*3/UL Baso # (Auto) 10*3/UL Neutrophils % (Manual) (50-80) % Band Neutrophils % (0-10) % Lymphocytes % (Manual) (10-50) % Monocytes % (Manual) (0-12) % Eosinophils % (Manual) (0-8) % Basophils % (Manual) (0-1) % Metamyelocytes % Myelocytes % Promyelocytes % Blast Cells WBC Morphology Comment (NORM) Plt Morphology Comment (NORM) RBC Morph Comment (NORM) D-Dimer (0.00-0.59) mg/L Sodium (135-145) meq/L Potassium (3.8-5.2) meq/L Chloride (98-112) meq/L Carbon Dioxide (23-33) meq/L Anion Gap (5-20) BUN (7-22) mg/dL Creatinine (0.70-1.50) mg/dL Estimated GFR (>60 ml/min/1.73m(2)) BUN/Creatinine Ratio (6-20) Glucose (78-110) mg/dL Calculated Osmolality (267-292) mOsm/kg Calcium (8.7-10.7) mg/dL Magnesium (1.6-2.4) mg/dL Total Bilirubin (0.3-1.2) mg/dL AST (21-57) IU/L ALT (21-72) IU/L Alkaline Phosphatase (38-126) IU/L Lactate Dehydrogenase (313-618) IU/L CK-MB (CK-2) 1.09 (0.00-5.00) NG/ML Troponin I < 0.012 (< 0.040) ng/mL C-Reactive Protein < 0.5 (0.0-0.9) mg/dL Total Protein (6.1-8.0) g/dL Albumin (3.5-4.8) g/dL Globulin (2.50-4.10) g/dL Albumin/Globulin Ratio (1.3-2.0) mg/g Triglycerides (44-200) mg/dL Cholesterol (120-200) mg/dL LDL Cholesterol, Calc mg/dL VLDL Cholesterol (0-40) mg/dL HDL Cholesterol (40-150) mg/dL Cholesterol/HDL Ratio (0-4.0) RATIO TSH (0.2700-4.2000) uIU/mL Free T4 (0.93-1.71) ng/dL [address] [facility] [place] [address] PH: [phone] FAX: [phone] ~DIAGNOSTIC IMAGING REPORT~ Patient: DEN HIGHTOWER : 1945 Sex: M Age: 71 Exam Name: [place] Myocardial Multi-Spect Exam Date: 04/13/17 Report # : [id number] CPT Code: 06989 EMR/MR #: [id number] Ordering: TEETEE ESPINAL Admiting: TEETEE ESPINAL DO Primary: Bailee Underwood MD Attending: TEETEE ESPINAL DO Signed 2 DAY LEXISCAN STRESS & REST MYOCARDIAL PERFUSION SCANS, 04/13/2017 7:00 AM : Clinical History: Chest pain. Previous Exam: None at this facility. Monitoring Physician: Dr. Teetee Espinal. Dose: Stress dose: 35 mCi on 04/14/2017. Rest dose: 37 mCi on 04/13/2017. Quantitative Analysis: Touch of Classic program with low dose limited CT chest scan attenuation correction. Exam Quality: Excellent. Rejected Beats: Stress = 0%; Rest = 0%. HR: Stress = 73-80 b/m; Rest = 83-85 b/m. Left ventricular chamber sizes are normal at stress and rest. Transient ischemic dilatation ratio is 1.13 (normal David TID <= 1.22; normal Lexiscan TID <= 1.33). Stress LVEF: 72%; rest LVEF: 81%. Stress and rest non-attenuated and attenuated corrected scans show normal myocardial perfusion, wall motion, and thickening. Limited CT scans of the heart show no coronary artery calcifications. There are no lung nodules or enlarged nodes. Scans through the right middle lobe show a 6 mm noncalcified nodule. See below for followup. Readin. Normal stress and rest left ventricular chamber size. Transient ischemic dilatation ratio is normal at 1.13. 2. Normal stress and rest LVEF values of 72% and 81%, respectively. 3. Normal stress and rest myocardial perfusion, wall motion, and thickening. 4. There is a 6 mm noncalcified nodule in the right middle lobe. If this patient is considered to be either low risk or high-risk, then a followup CT chest scan is recommended at 6 months. 5. The low dose stress and rest CT scans of the chest through the region of the heart show no coronary calcifications. There is no mediastinal or hilar adenopathy. Dictated By: 04/14/17 1634 PRANAY NOONAN MD. Signed By: 04/14/17 9400 PRANAY NOONAN MD. [address] [facility] [place] [address] PH: DD: [phone] FAX: [phone] ~DIAGNOSTIC IMAGING REPORT~ Patient: DEN HIGHTOWER : 1945 Sex: M Age: 71 Exam Name: XR CXR 1VW Exam Date: 04/12/17 Report # : [id number] CPT Code: 52043 EMR/MR #: [id number] Ordering: BING KU Admiting: TEETEE ESPINAL DO Primary: Bailee Underwood MD Attending: TEETEE ESPINAL DO Signed INDICATION: Chest pain COMPARISON: None. FINDINGS: Single frontal view of the chest is provided. There is mild cardiomegaly with normal pulmonary vascularity. Silhouetting of the left hemidiaphragm may be related to prominent epicardial fat pad or small pleural effusion. There is no airspace consolidation or pneumothorax. There are no acute osseous findings. IMPRESSION: 1. Silhouetting of the left hemidiaphragm, prominent epicardial fat pad versus small pleural effusion. 2. Mild cardiomegaly. Dictated By: Roxanne Mcnulty MD Signed By: 04/13/17906 Roxanne Mcnulty MD Patient Problems - Patient Problem List (1) Chest pain Current Visit: Yes Status: Acute Code(s): R07.9 - Chest pain, unspecified Qualifiers: Chest pain type: chest pain on breathing Qualified Code(s): R07.1 - Chest pain on breathing; R07.81 - Pleurodynia Category: Medical (2) Hypertension Current Visit: Yes Status: Acute Code(s): I10 - Essential (primary) hypertension Qualifiers: Hypertension type: essential hypertension Qualified Code(s): I10 - Essential (primary) hypertension Category: Medical (3) GERD (gastroesophageal reflux disease) Current Visit: Yes Status: Acute Code(s): K21.9 - Gastro-esophageal reflux disease without esophagitis Qualifiers: Esophagitis presence: esophagitis presence not specified Qualified Code(s) : K21.9 - Gastro-esophageal reflux disease without esophagitis Category: Medical (4) Obstructive sleep apnea Current Visit: Yes Status: Acute Code(s): G47.33 - Obstructive sleep apnea ( adult) (pediatric) Category: Medical
== END 2017-04-14 17:55 | disposition home or self-care (01) ==
LOC: MED/SURG 23:11 → ER 23:11
PROVIDERS: ADMIT Family Medicine; ATTEND Family Medicine